=== PATIENT | female | born 1970 | race Caucasian/White ===

== ENCOUNTER → 2021-02-04 | Outpatient (CLI) | payer OTHER ==
[~2021-02-04] MED LIST: CEFUROXIME500 MG PO; IBUPROFEN600 MG PO; ONDANSETRON ODT4 MG PO; ZOFRAN4 MG PO
[2021-02-05 13:15] LABS: RHEUMATOID ARTHRITIS FACTOR <10.0 IU/mL (0.0-13.9)
[2021-02-07 01:07] LABS: CCP ANTIBODIES IGG/IGA 9 units (0-19)
== END ==
LOC: LAB 10:25
PROVIDERS: Nurse Practitioner Family
DX: M25.50 Pain in unspecified joint (principal); R53.83 Other fatigue; M79.10 Myalgia, unspecified site; D89.9 Disorder involving the immune mechanism, unspecified; R76.8 Other specified abnormal immunological findings in serum
CPT/HCPCS: 36415; 82550; 82728; 83520; 83540; 83550; 85652; 86140; 86200; 86431

== ENCOUNTER → 2021-06-06 | Outpatient (CLI) | payer SELFPAY | LOC: KOH-I 13:32 | DX: J32.0 Chronic maxillary sinusitis (principal); J34.89 Other specified disorders of nose and nasal sinuses | CPT/HCPCS: 70486 ==

== ENCOUNTER → 2021-07-21 | Outpatient (CLI) | payer OTHER ==
[~2021-07-21] MED LIST changes: +IBUPROFEN800 MG PO; +JUNEL FE; +LISINOPRIL20 MG PO; +TYLENOL EXTRA500 MG PO
[2021-07-21 10:16] LABS: BUN/CREATININE RATIO 15 (0-10)
== END ==
LOC: OPSV2 08:00
PROVIDERS: Otolaryngology
DX: Z01.812 Encounter for preprocedural laboratory examination (principal)
CPT/HCPCS: 80048

== ENCOUNTER → 2021-07-25 | Day surgery (SDC) | payer OTHER | END | disposition home or self-care (01) | LOC: OR 06:50 | DX: J32.0 Chronic maxillary sinusitis (principal); I10 Essential (primary) hypertension; G43.909 Migraine, unspecified, not intractable, without status migrainosus; Z20.822 Contact with and (suspected) exposure to COVID-19 | CPT/HCPCS: 84703; 87070; 87205; C1726; J0171; J0690; J1100; J1170; J2001; J2250; J2310; J2370; J2405; J2704; J2710; J3010; J7030; J7120 ==